=== PATIENT | male | born 1960 | race Caucasian/White ===

== ENCOUNTER 2019-03-11 15:45 | Emergency (ER) | payer OTHER ==
[~2019-03-11] VITALS: Ht 162.6 cm; Wt 72.6 kg
[~2019-03-11 15:45] MED LIST: CIPRO500 MG PO; DIOVAN320 MG PO; FLOMAX0.4 MG PO; NORCO 5-325 TA1 EACH PO; OXYCODONE HCL 55 MG PO; PAXIL10 MG PO; PERCOCET 5-3251 EACH PO; ZOFRAN4 MG PO
[2019-03-11] MEDS ORDERED: ZANAFLEX2 M1 PO (16:07)
[2019-03-11] MEDS ORDERED: DRIZALMA SPRINK20 MG PO (16:07)
[2019-03-11 16:32] LABS: HEMATOCRIT 44.6 % (42.0-52.0); HEMOGLOBIN 14.8 gm/dL (14.0-18.0); MCH 27.7 pg (26.0-34.0); MCHC 33.2 g/dL (28.0-37.0); MCV 83.4 fL (80.0-100.0); RBC 5.35 mil/uL (4.50-6.00); RDW-CV 15.4 % (10.5-14.5); WBC 7.4 thou/uL (4.0-11.0)
[2019-03-11 16:40] LABS: CALCIUM 8.9 mg/dL (8.5-10.1); POTASSIUM 4.7 mmol/L (3.5-5.1)
[2019-03-11 16:44] LABS: ALBUMIN 3.7 g/dL (3.4-5.0); TOTAL BILIRUBIN 0.5 mg/dL (<0.1-1.0); TOTAL PROTEIN 6.9 g/dL (6.4-8.2)
[2019-03-11] MEDS ORDERED: FLEXERIL PO (19:03)
[2019-03-11] MEDS ORDERED: NORCO 5-325 TA1 EAC1 PO (19:08)
[2019-03-11 19:15] VITALS: BP 155/89
== END 2019-03-11 19:15 | disposition home or self-care (01) ==
LOC: M.ERS 15:45
PROVIDERS: Emergency Medicine Emergency Medical Services
DX: M54.2 Cervicalgia (principal); M54.6 Pain in thoracic spine; M54.5 Low back pain; I10 Essential (primary) hypertension; G89.29 Other chronic pain; Z87.442 Personal history of urinary calculi